=== PATIENT | male | born 1995 | race Caucasian/White ===

== ENCOUNTER 2022-04-06 20:04 | Emergency (ER) | payer OTHER, SELFPAY ==
[2022-04-06 20:10] VITALS: BP 150/84; PULSE 86; RESP 17; TEMP 37.1; O2SAT 100; BMI 41.8
--- NOTE | 2022-04-06 20:36 | W.ED.EXTPRO ---
HPI - Extremity Problem General: Chief complaint: Extremity Problem,Nontraumatic Stated complaint: right leg infection, possible spider bite Time Seen by Provider: 04/06/22 20:27 History of Present Illness: 26-year-old male patient comes in today for complaints of redness and tenderness around a coin sized wound to the right lower leg. Patient reports it might be a spider bite or might of bumped it and caused the infection. Patient does report pain. Patient denies any nausea vomiting or fever. Patient appears nontoxic. Patient appears at mild to no pain. Review of Systems Skin/Breast: Reports: changing lesions Physical Exam Const: COMMON NORMALS: alert HENMT: COMMON NORMALS: normocephalic HEAD & SCALP: normocephalic Resp: COMMON NORMALS: normal respiratory effort Cardio: COMMON NORMALS: regular rate RATE: regular rate Extremity: RIGHT LOWER EXTREMITY: Yes lower leg (Crusted 2 cm circular lesion, surrounding redness 6 cm) Neuro: SENSORIUM/ORIENTATION: Yes alert Course Vital Signs: Vital signs: Vital Signs Temperature 98.8 F 04/06/22 20:10 Pulse Rate 86 04/06/22 20:10 Respiratory Rate 17 04/06/22 20:10 Blood Pressure 150/84 04/06/22 20:10 Pulse Oximetry 100 04/06/22 20:10 Oxygen Delivery Me thod 04/06/22 20:10 MDM - Extremity (Nontraumatic) Medical Decision Making Patient comes in for wound to the right lower leg that is crusting and now has surrounding redness to it. Patient reports the wound he noticed about 1 to 2 weeks ago with increasing redness over the last 3 days. Patient appears nontoxic. Patient appears no acute distress. Differential diagnosis includes wound infection, cellulitis, local reaction to insect bite. Suspect wound infection. We will start patient on Augmentin to cover for strep, and Bactrim to cover for staph. Patient will be continued on mupirocin ointment. Recommend follow-up with primary care or return to ED for worsening symptoms. Discharge Plan Discharge Patient Disposition: Home Clinical Impression: Wound infection Condition: Stable Prescriptions: New amoxicillin-pot clavulanate 875-125 mg tablet 1 tab PO BID Qty: 14 0RF Bactrim DS 800-160 mg tablet 1 tab PO BID Qty: 14 0RF mupirocin 2 % ointment 1 applic topical BID Qty: 22 0RF Discharge Orders: Discharge ED (Routine); Ordered 04/06/22 Ordered By: Valerio Adams Patient Instructions: Opioid Safety, Pain Management Activity Restrictions/Additional Instructions: Home and rest. Elevate leg. Clean wound twice a day with warm soapy water and cover with mupirocin antibiotic ointment. Take oral antibiotics 2 times a day for the next 7 days. Follow-up with primary care as needed. Return to ED for worsening symptoms such as high fever, inability to hold fluids down, increasing redness and swelling to the lower leg. Stand Alone Forms: Work/School Release Coding Level of Care Code ED Chief Nurse Anesthetist for Meg Broderick
[2022-04-06] MEDS: sulfamethoxazole-trimeth DS 160-800 mg Tablet 1 TAB PO (20:47)
[2022-04-06] MEDS: mupirocin oint 22 gm 1 APPLIC TOPICAL (20:48)
[2022-04-06] MEDS: amoxicillin-clav 875-125 mg Tablet 1 TAB PO (20:48)
== END 2022-04-06 20:54 | disposition home or self-care (01) ==
PROVIDERS: Emergency Provider Nurse Practitioner Family
DX: S81.801A Unspecified open wound, right lower leg, initial encounter (principal); L08.9 Local infection of the skin and subcutaneous tissue, unspecified; X58.XXXA Exposure to other specified factors, initial encounter
CPT/HCPCS: 99283

== ENCOUNTER → 2022-06-27 12:21 | Outpatient (BNVA) | payer OTHER, SELFPAY | PROVIDERS: PCP Family Medicine; Visit Provider Family Medicine | DX: R41.3 Other amnesia (principal) | CPT/HCPCS: 80053; 80061; 82607; 83036; 84443; 85025 ==

== ENCOUNTER → 2022-07-29 08:07 | Outpatient (BNVA) | payer OTHER, SELFPAY | PROVIDERS: PCP Family Medicine; Visit Provider Psychiatry & Neurology Neurology | DX: R41.3 Other amnesia (principal); E55.9 Vitamin D deficiency, unspecified; Z87.820 Personal history of traumatic brain injury | CPT/HCPCS: 36415; 82306 ==

== ENCOUNTER 2022-08-18 14:57 | Outpatient (CLI) | payer OTHER, SELFPAY ==
--- NOTE | 2022-08-18 15:15 | MR_ITS ---
WS: [id number] MRI HEAD WITH CONTRAST TECHNIQUE: Sagittal T1, T2 axial, T2 axial FLAIR, axial susceptibility weighted imaging, axial diffus ion weighted images, and coronal T2 images were obtained. Pre and post-T1 axial and post T1 coronal i mages. ADC and FSPGR images. CLINICAL INFORMATION: R41.3 - Other amnesia COMPARISON: CT 2011 FINDINGS: No evidence restricted diffusion to suggest acute ischemia. Ventricular system and basal cisterns are patent. No suspicious intracranial signal abnormalities. Normal araiza-white differentiation. Normal p osterior fossa. Normal vascular flow voids at the skull base. No extra-axial fluid collections. No ev idence of mass or mass effect. Normal posterior nasopharynx. Normal parapharyngeal fat. No hydrocephalus. Paranasal sinuses and mast oid air cells well aerated. Visualized orbits are normal. No hemosiderin on susceptibly weighted images. Normal optic chiasm and pituitary infundibulum. Normal cavernous sinuses and Meckel's cave. Temporal lobes and hippocampal formations are normal in appearance. No abnormal gadolinium enhancement. Normal dural venous sinuses. No other suspicious findings. MR/MR head wo/w con [id number] IMPRESSION: 1. No evidence of restricted diffusion to suggest acute ischemia. 2. No suspicious intracranial signal abnormalities. Normal araiza-white differen tiation. 3. No hemosiderin on susceptibly weighted images. 4. Temporal lobes and hippocampal formations are normal in appearance. 5. No abnormal gadolinium enhancement. 6. No other remarkable findings.
[2022-08-18] MEDS: gadobenate dimeglumine 20 mL vial IV (17:17)
== END 2022-08-18 14:58 | disposition home or self-care (01) ==
PROVIDERS: PCP Family Medicine; Visit Provider Psychiatry & Neurology Neurology
DX: R41.3 Other amnesia (principal); Z87.820 Personal history of traumatic brain injury; R51.9 Headache, unspecified
CPT/HCPCS: 36415; 70553; 82306; A9577

== ENCOUNTER → 2022-09-10 11:55 | Outpatient (BNVA) | payer OTHER, SELFPAY | PROVIDERS: PCP Family Medicine; Visit Provider Internal Medicine Cardiovascular Disease | DX: R07.9 Chest pain, unspecified (principal) | CPT/HCPCS: 93005 ==

== ENCOUNTER 2022-10-09 20:00 | Outpatient (CLI) | payer OTHER, SELFPAY | END 2022-10-09 20:01 | disposition home or self-care (01) | LOC: SLEEP 10-10 06:00 | PROVIDERS: PCP Family Medicine; Visit Provider Psychiatry & Neurology Neurology | DX: G47.33 Obstructive sleep apnea (adult) (pediatric) (principal) | CPT/HCPCS: 95810 ==